=== PATIENT | male | born 1970 | race Caucasian/White ===

== ENCOUNTER → 2019-04-19 | Outpatient (CLI) | payer OTHER ==
--- NOTE | 2019-04-19 13:09 | KCIC ---
LUMBAR SPINE WO CONTRAST History: Lumbar back pain extending into right lower extremity. Technique: Multiplanar, multi sequential MR imaging was performed of the lumbar spine. Comparison: None Findings: Normal vertebral body height and alignment. No fracture. Conus terminates at the normal location. No evidence of nerve root clumping. Left renal cyst partially imaged. L1-L2: No canal or neuroforaminal narrowing. L2-L3: Minimal posterior disc bulge. No canal or neuroforaminal narrowing. L3-L4: Small posterior disc bulge. Mild facet arthropathy. No canal narrowing. No neuroforaminal narrowing. L4-L5: Prior right laminectomy. Right subarticular disc extrusion extending inferiorly. Heterogeneous appearance of the extrusion, may represent free fragment. Compression of the right descending L5 nerve root within the subarticular recess. No canal narrowing. Moderate facet arthropathy. Mild right neuroforaminal narrowing. L5-S1: Small posterior disc bulge. Prior right laminectomy. Moderate facet arthropathy. No canal narrowing. Moderate to severe right and mild left neuroforaminal narrowing. Impression: 1. L4-L5 right subarticular disc extrusion extending inferiorly with heterogeneous appearance, raising concern for free fragment. 2. Severe right L4-L5 subarticular recess narrowing with compression of the descending right L5 nerve root. Correlate for radiculopathy. 3. Moderate to severe right L5-S1 neural foraminal narrowing. 4. Additional multilevel lumbar spondylosis with postoperative changes. Electronically signed by: Ernesto Perez DO (04/19/2019 1:06 PM) [id number]
== END | disposition home or self-care (01) ==
LOC: KCIC MRI 08:32
DX: M51.27 Other intervertebral disc displacement, lumbosacral region (principal); M48.07 Spinal stenosis, lumbosacral region; M12.88 Other specific arthropathies, not elsewhere classified, other specified site; N28.1 Cyst of kidney, acquired
CPT/HCPCS: 72148